=== PATIENT | female | born 1935 | race Asian ===

== ENCOUNTER 2017-01-28 00:12 | Inpatient (IN) | payer MEDICARE, OTHER ==
[~2017-01-28] VITALS: Ht 162.6 cm; Wt 75.0 kg
[2017-01-28] VITALS (12 sets, daily range): BP systolic 122–184; BP diastolic 63–84; PULSE 57–71; RESP 18–20; Ht 162.6 cm; Wt 75.0 kg
[~2017-01-28 00:12] MED LIST: ASPI81TA3 PO; ATOR40TA68 PO; CARV6.2579 PO; CLOP75TA27 PO; LEVO100T87 PO; VALS80TA2 PO
--- NOTE | 2017-01-28 00:31 | ERA ---
ER Documentation Chief Complaint Date/Time DATE: 01/28/17 TIME: 00:31 Chief Complaint Right-sided numbness and acute on chronic weakness HPI The patient is a 81-year-old female, resenting to the ER because of acute onset of right-sided numbness and acute on chronic right-sided weakness about 2 hours prior to arrival. She had history of stroke about 2 years ago with minimal right-sided weakness. She also had right facial droop about 2 hours prior to arrival. He denies headache, slurred speech, neck pain, chest pain, dyspnea, abdominal pain, vomiting, dysuria, diarrhea. He does not smoke nor drink Past medical history: CAD, hypertension, history of stroke, hypothyroidism Past surgical history: Stent PCI ROS All systems reviewed and are negative except as per history of present illness. Medications Home Meds Reported Medications Clopidogrel Bisulfate (Clopidogrel) 75 Mg Tablet, 75 MG PO DAILY, #30 TAB 08/01/16 Atorvastatin* (Atorvastatin*) 40 Mg Tablet, 40 MG PO QHS, #30 TAB 08/01/16 Valsartan* (Diovan*) 80 Mg Tablet, 80 MG PO DAILY, TAB 08/01/16 Levothyroxine Sodium* (Levothyroxine Sodium*) 100 Mcg Tablet, 100 MCG PO BEFORE BREAKFAST, #30 TAB 08/01/16 Aspirin* (Aspirin* Chew) 81 Mg Tab.chew, 81 MG PO DAILY, TAB.CHEW 08/01/16 Carvedilol* (Carvedilol*) 6.25 Mg Tablet, 6.25 MG PO BID, #60 TAB 08/01/16 Allergies Allergies: Coded Allergies: No Known Allergy (Unverified , 01/28/17) PMhx/Soc Hx Neurological Disorder: Yes (CVA ) Hx Respiratory Disorders: No Hx Cardiac Disorders: Yes Hx Psychiatric Problems: No Hx Miscellaneous Medical Probl: No Hx Alcohol Use: No Hx Substance Use: No Hx Tobacco Use: No Physical Exam Vitals Vital Signs Date Time Temp Pulse Resp B/P Pulse Ox O2 Delivery O2 Flow Rate FiO2 01/28/17 03:30 73 18 125/56 100 Room Air 01/28/17 03:00 64 14 128/69 98 Room Air 01/28/17 02:00 71 23 132/67 96 Room Air 01/28/17 01:00 72 24 183/89 96 Room Air 01/28/17 00:35 98.1 80 18 164/83 100 Physical Exam Const: No acute distress. Head: Atraumatic. Eyes: Normal Conjunctiva. ENT: Normal External Ears, Nose and Mouth. Neck: Full range of motion. No meningismus. Resp: Clear to auscultation bilaterally. Cardio: Regular rate and rhythm. Abd: Soft, non distended, normal bowel sounds, non tender. Skin: No petechiae or rashes. Back: No midline or flank tenderness. Ext: No cyanosis, or edema. Neur: Awake and alert. Right facial droop, right upper and right lower extremity 4+ Psych: Normal Mood and Affect. Result Diagram: 01/28/17 0045 01/28/17 0045 Results 24 hrs Laboratory Tests Test 01/28/17 00:25 01/28/17 00:45 Bedside Glucose 143mg/dL White Blood Count 6.610^3/ul Red Blood Count 4.2710^6/ul Hemoglobin 11.7g/dl Hematocrit 36.2% Mean Corpuscular Volume 84.8fl Mean Corpuscular Hemoglobin 27.4pg Mean Corpuscular Hemoglobin Concent 32.3g/dl Red Cell Distribution Width 14.4% Platelet Count 87621^3/UL Mean Platelet Volume 10.7fl Neutrophils % 62.9% Lymphocytes % 21.3% Monocytes % 9.1% Eosinophils % 5.6% Basophils % 0.6% Nucleated Red Blood Cells % 0.0/100WBC Neutrophils # 4.110^3/ul Lymphocytes # 1.410^3/ul Monocytes # 0.610^3/ul Eosinophils # 0.410^3/ul Basophils # 0.010^3/ul Nucleated Red Blood Cells # 0.010^3/ul Prothrombin Time 13.0Sec Prothrombin Time Ratio 1.0 INR International Normalized Ratio 0.98 Activated Partial Thromboplast Time 23.6Sec Urine Color LT. YELLOW Urine Clarity CLEAR Urine pH 7.0 Urine Specific [place] <=1.005 Urine Ketones NEGATIVE Urine Nitrite NEGATIVE Urine Bilirubin NEGATIVE Urine Urobilinogen 0.2 E.U./dL Urine Leukocyte Esterase NEGATIVE Urine Microscopic RBC 0-2/HPF Urine Microscopic WBC 0-2/HPF Urine Squamous Epithelial Cells RARE Urine Hemoglobin TRACE Urine Glucose NEGATIVE% Urine Total Protein NEGATIVE Sodium Level 137mmol/L Potassium Level 4.2mmol/L Chloride Level 101mmol/L Carbon Dioxide Level 28mmol/L Anion Gap 12 Blood Urea Nitrogen 20mg/dl Creatinine 1.26mg/dl Glucose Level 109mg/dl Calcium Level 9.0mg/dl Troponin I < 0.012ng/ml Urine Opiates Screen NEGATIVE Urine Barbiturates NEGATIVE Urine Amphetamines Screen NEGATIVE Urine Benzodiazepines Screen NEGATIVE Urine Cocaine Screen NEGATIVE Urine Cannabinoids NEGATIVE Current Medications Medications (Trade) Dose Ordered Sig/[place] Route PRN Reason Start Time Stop Time Status Last Admin Dose Admin Aspirin (Aspirin) 325 mg ONCE ONCE PO 01/28/17 02:00 01/28/17 02:01 DC Procedures/MDM [place] [id number] Radiology Main Line: [phone] DIAGNOSTIC IMAGING REPORT Patient: SYLWIA MCNEIL : 1935 Age: 81 Sex: F MR #: [id number] DOS: 01/28/17 0031 Ordering MD: TALYA FERGUSON MD Location: E/R Room/Bed: PROCEDURE: XR Chest. CLINICAL INDICATION: Possible stroke. TECHNIQUE: Single frontal view of the chest.. COMPARISON: 08/01/2016. FINDINGS: Cardiomegaly and atherosclerotic calcifications in the thoracic aorta. Likely changes of centrolobular emphysema. The lungs otherwise clear.. No signs of pleural fluid or pneumothorax are seen. The osseous structures and soft tissues are unremarkable. IMPRESSION: No evidence for active cardiopulmonary disease. RPTAT: UU Physician Brayan Date Time Electronically viewed and signed by Physician Brayan on 01/28/2017 01:07 RS/ CC: TALYA FERGUSON MD [place] [id number] Radiology Main Line: [phone] DIAGNOSTIC IMAGING REPORT Patient: SYLWIA MCNEIL : 1935 Age: 81 Sex: F MR #: [id number] DOS: 01/28/17 0031 Ordering MD: TALYA FERGUSON MD Location: E/R Room/Bed: PROCEDURE: CT head, without contrast. CLINICAL INDICATION: Possible Stroke TECHNIQUE: Noncontrast CT examination of the head, with axial, sagittal and coronal reformatted images. Automated dose exposure control was employed. CTDI: 43.58 and DLP: 720.23. COMPARISON: None. FINDINGS: Chronic changes of atrophy and small vessel disease white matter. Note acute hemorrhage. Subarachnoid spaces are substantially preserved and symmetric. Ventricles are unremarkable. No mass effect. Hartmann-white matter distinction is preserved without evident decreased attenuation to suggest acute or recent infarct. Sinuses and osseous structures are unremarkable. IMPRESSION: Chronic changes of atrophy and small vessel disease white matter. RPTAT: UU Physician Brayan Date Time Electronically viewed and signed by Physician Brayan on 01/28/2017 00:38 RS/ CC: TALYA FERGUSON MD EKG: Read by emergency physician Rate/Rhythm: Normal Sinus Rhythm 74 beats/min QRS, ST, T-waves: No ST elevation, no T inversion Impression: Normal EKG MEDICAL MAKING DECISION: The patient is a 81-year-old female, presenting with subacute stroke, she was evaluated by stroke neurologist Dr Diaz, and did not recommend TPA, only recommended aspirin The differential diagnoses considered include but are not limited to subarachnoid hemorrhage, occult trauma, CVA, meningitis, encephalitis, hypertension, tension, migraine, cluster, narcotic withdrawal, cervical spine disease. Consultation: I discussed the patient with the stroke neurologist Dr. Diaz at 12:50 AM and again at 1:10 AM Departure Diagnosis: Primary Impression: Stroke Additional Impression: Anemia Condition: Good Comments I discussed the findings with the patient. I discussed the patient with her physician Dr. Gutierrez who was made aware of the lab, the treatment, the patient condition. The patient is admitted to telemetry at 2:55 AM TALYA FERGUSON MD Jan 28, 2017 00:31
--- NOTE | 2017-01-28 00:39 | RADRPT ---
PROCEDURE: CT head, without contrast. CLINICAL INDICATION: Possible Stroke TECHNIQUE: Noncontrast CT examination of the head, with axial, sagittal and coronal reformatted im ages. Automated dose exposure control was employed. CTDI: 43.58 and DLP: 720.23. COMPARISON: None. FINDINGS: Chronic changes of atrophy and small vessel disease white matter. Note acute hemorrhage. Subarachnoid spaces are substantially preserved and symmetric. Ventricles are unremarkable. No mass effect. Hartmann-white matter distinction is preserved without evident decreased attenuation t o suggest acute or recent infarct. Sinuses and osseous structures are unremarkable. IMPRESSION: Chronic changes of atrophy and small vessel disease white matter. RPTAT: UU Physician Brayan Date Time Electronically viewed and signed by Physician Brayan on 01/28/2017 00:38 /
[2017-01-28 00:49] LABS: ADD SCAN DIFF NO
[2017-01-28 00:52] LABS: BASOPHILS % 0.6 % (0.0-2.0); EOSINOPHILS # 0.4 10^3/ul (0.0-0.5); EOSINOPHILS % 5.6 % (0.0-7.0); HEMATOCRIT 36.2 % (37.0-47.0); HEMOGLOBIN 11.7 g/dl (12.0-16.0); LYMPHOCYTES # 1.4 10^3/ul (0.8-2.9); LYMPHOCYTES % 21.3 % (15.0-51.0); MEAN CORPUSCULAR HEMOGLOBIN 27.4 pg (29.0-33.0); MEAN CORPUSCULAR HGB CONC 32.3 g/dl (32.0-37.0); MEAN CORPUSCULAR VOLUME 84.8 fl (82.0-101.0); MEAN PLATELET VOLUME 10.7 fl (7.4-10.4); MONOCYTE # 0.6 10^3/ul (0.3-0.9); MONOCYTES % 9.1 % (0.0-11.0); NEUTROPHIL # 4.1 10^3/ul (1.6-7.5); NEUTROPHILS % 62.9 % (39.0-77.0); PLATELET COUNT 190 10^3/UL (140-415); RED BLOOD COUNT 4.27 10^6/ul (4.20-5.40); RED CELL DISTRIBUTION WIDTH 14.4 % (11.5-14.5); WHITE BLOOD COUNT 6.6 10^3/ul (4.8-10.8)
[2017-01-28 00:59] LABS: ADD UMIC YES; URINE BILIRUBIN (Dip) NEGATIVE (NEGATIVE); URINE BLOOD (Dip) TRACE (NEGATIVE); URINE COLOR LT. YELLOW (YELLOW); URINE GLUCOSE (Dip) NEGATIVE (NEGATIVE); URINE KETONES (Dip) NEGATIVE (NEGATIVE); URINE LEUKOCYTE ESTERASE (Dip) NEGATIVE (NEGATIVE); URINE NITRITE (Dip) NEGATIVE (NEGATIVE); URINE TOTAL PROTEIN (Dip) NEGATIVE (NEGATIVE); URINE UROBILINOGEN (Dip) 0.2 E.U./dL (0.1-1.0)
[2017-01-28 01:05] LABS: INR 0.98
[2017-01-28 01:06] LABS: PARTIAL THROMBOPLASTIN TIME 23.6 Sec (25.0-35.0)
[2017-01-28 01:07] LABS: SQUAMOUS EPITHELIAL CELL,UR RARE; URINE RBCS 0-2 /HPF (0)
--- NOTE | 2017-01-28 01:07 | RADRPT ---
PROCEDURE: XR Chest. CLINICAL INDICATION: Possible stroke. TECHNIQUE: Single frontal view of the chest.. COMPARISON: 08/01/2016. FINDINGS: Cardiomegaly and atherosclerotic calcifications in the thoracic aorta. Likely changes of centrolobu lar emphysema. The lungs otherwise clear.. No signs of pleural fluid or pneumothorax are seen. The osseous structures and soft tissues are unremarkable. IMPRESSION: No evidence for active cardiopulmonary disease. RPTAT: UU Physician Brayan Date Time Electronically viewed and signed by Trent Patrick Physician on 01/28/2017 01:07 RS/
[2017-01-28 01:09] LABS: ANION GAP 12 (8-16); BLOOD UREA NITROGEN 20 mg/dl (7-20); CARBON DIOXIDE 28 mmol/L (21-31); CHLORIDE 101 mmol/L (97-110); CREATININE 1.26 mg/dl (0.44-1.00); GLUCOSE 109 mg/dl (70-220); POTASSIUM 4.2 mmol/L (3.5-5.1); SODIUM 137 mmol/L (135-144)
[2017-01-28 01:16] LABS: BARBITURATES NEGATIVE (NEGATIVE); BENZODIAZEPINES NEGATIVE (NEGATIVE); CANNABINOIDS NEGATIVE (NEGATIVE); COCAINE NEGATIVE (NEGATIVE)
[2017-01-28 01:17] LABS: OPIATES NEGATIVE (NEGATIVE)
[2017-01-28 01:30] LABS: TROPONIN-I < 0.012 ng/ml (0.00-0.12)
[2017-01-28] MEDS ORDERED: ASPIRIN 325 MG TAB PO ONE (02:00)
[2017-01-28] MEDS ORDERED: DOCUSATE SODIUM 100 MG CAP PO PRN (06:00)
[2017-01-28] MEDS ORDERED: NACL 0.9% 3 ML SYG IV SCH (06:00)
[2017-01-28] MEDS ORDERED: HYDROCODONE/APAP (5/325) TAB PO PRN (06:00)
[2017-01-28] MEDS ORDERED: NITROGLYCERIN (SL) 0.4 MG TAB SL PRN (06:00)
[2017-01-28] MEDS: HEPARIN 5,000 UNIT/0.5 ML VIAL SC SCH ×3 (06:36→22:40)
[2017-01-28] MEDS: LEVOTHYROXINE 100 MCG TAB PO SCH (06:42)
--- NOTE | 2017-01-28 07:17 | HP ---
Date/Time of Note Date/Time of Note DATE: 01/28/17 TIME: 07:11 Assessment/Plan VTE Prophylaxis VTE Prophylaxis Intervention: heparin Lines/Catheters IV [facility] Urinary Cath still in place: No Assessment/Plan Problems: (1) History of CVA in adulthood Status: Chronic Comment: This was roughly 18 months ago. Please note the patient has been on dual antiplatelet therapy for coronary artery disease status post PCI with stenting in July 2016. That will be continued. (2) Accelerated hypertension Status: Acute Comment: Will adjust her H2 receptor jessica therapy to get better control (3) Essential hypertension Status: Chronic Comment: Noted adjust medicines for control. (4) Hyperlipidemia Status: Chronic Comment: Continue statin therapy Qualifiers: Hyperlipidemia type: pure hypercholesterolemia Qualified Code: E78.00 - Pure hypercholesterolemia (5) Hypothyroid Status: Chronic Comment: Continue replacement therapy Qualifiers: Hypothyroidism type: acquired Qualified Code: E03.9 - Acquired hypothyroidism (6) Brain TIA Status: Acute Comment: All of neurology see the patient in consultation. Continue with dual antiplatelet therapy cholesterol management and blood pressure management. Qualifiers: Transient cerebral ischemia type: other Qualified Code: G45.8 - Other specified transient cerebral ischemias HPI/ROS Admit Date/Time Admit Date/Time Jan 28, 2017 at 02:56 Hx of Present Illness Charming 81-year-old [facility] woman with her grandson translating. She reports a prior history of a CVA roughly 18 months ago. This had presented with right- sided primarily sensory deficits with some degree of weakness. She had a good recovery. In the interim she has had cardiac evaluation with stenting in July 2016. Yesterday she was in her usual state of health and they noted that her home blood pressure monitoring that her blood pressure kesha inexplicably. She began to develop the sensory neurologic symptoms in the right upper and lower extremities with some tingling weakness or correction with tingling and numbness but not specific weakness. She was transported by paramedics to the emergency room where [facility] neurology consult was performed. Please note that that documentation is not presently in the medical record. It was opted not to treat her with thrombolytic therapy given the totality of the situation. At this time she reports she still has some degree of sensory loss in both the right upper and lower extremity. There is been no change in her vision no swallowing symptoms no alterations in her speech patterns. Her cardiac review of systems is negative. ROS Constitutional: no complaints (No fevers chills or sweats) Eyes: no complaints ENT: no complaints Respiratory: no complaints Cardiovascular: no complaints (Specifically denies cardiac symptoms) Gastrointestinal: no complaints Genitourinary: no complaints Musculoskeletal: no complaints Neurologic: other (Tingling and alteration sensation subjectively in the right upper and right lower extremities with possible weakness of the right lower extremity) Endocrine: no complaints Lymphatic: no complaints PMH/Family/Social Past Medical History Medical History: coronary artery disease, high cholesterol, hypertension, hypothyroid Past Surgical History Past Surgical Hx: noncontributory Family History Significant Family History: heart disease, diabetes, hypertension Social History Alcohol Use: none Smoking Status: Never smoker Drug Use: none Exam/Review of Systems Vital Signs Vitals Vital Signs Date Time Temp Pulse Resp B/P Pulse Ox O2 Delivery O2 Flow Rate FiO2 01/28/17 04:41 66 01/28/17 04:30 98.6 20 168/72 96 Room Air Intake and Output 01/27/17 01/27/17 01/28/17 15:00 23:00 07:00 Intake Total 100 ml Balance 100 ml Exam Exam Asleep and snoring without obvious sleep apnea. Easily awakened Constitutional: alert, oriented Psych: no complaints Head: atraumatic, normocephalic Eyes: EOMI, nl conjunctiva, nl lids, nl sclera ENMT: mucosa pink and moist, nl external ears & nose, nl lips & teeth, nl nasal mucosa & septum Neck: non-tender, supple Respiratory: clear to auscultation, normal air movement Cardiovascular: nl pulses, other (PMI is discrete and nondisplaced), regular rate and rhythm Gastrointestinal: nl liver, spleen, non-tender, soft Musculoskeletal: nl extremities to inspection Extremities: normal pulses Neurological: [employer] II-XII intact, nl mental status, nl speech, nl strength ( Appears that her strength is 5 out of 5 upper and lower right and left. There is no appreciable loss of sensory function) Labs Result Diagram: 01/28/17 0045 01/28/17 0045 Medications Medications Current Medications Aspirin (Aspirin) 81 mg DAILY PO ; Start 01/28/17 at 09:00 Clopidogrel Bisulfate (plaVIX) 75 mg DAILY PO ; Start 01/28/17 at 09:00 Nitroglycerin (Nitroglycerin (Sl Tab) 0.4 Mg) 1 tab Q5M PRN SL CHEST PAIN; Start 01/28/17 at 06:00 Acetaminophen/ Hydrocodone Bitart ([place] (5/325)) 1 tab Q6H PRN PO PAIN LEVEL 4 -6; Start 01/28/17 at 06:00 Docusate Sodium (Colace) 100 mg Q12H PRN PO CONSTIPATION; Start 01/28/17 at 06: 00 Famotidine (Pepcid) 20 mg DAILY PO ; Start 01/28/17 at 09:00 Heparin Sodium (Porcine) (Heparin (5000 Units/0.5 ml)) 5,000 unit Q8 SC Last administered on 01/28/17t 06:36; Admin Dose 5,000 UNIT; Start 01/28/17 at 06:00 Atorvastatin Calcium (Lipitor) 40 mg QHS PO ; Start 01/28/17 at 21:00 Carvedilol (Coreg) 6.25 mg BID PO ; Start 01/28/17 at 09:00 Valsartan (Diovan) 80 mg DAILY PO ; Start 01/28/17 at 09:00 GAYLE DAMON MD Jan 28, 2017 07:17
[2017-01-28] MEDS: FAMOTIDINE 20 MG TAB PO SCH (08:50)
[2017-01-28] MEDS: ASPIRIN 81 MG TAB PO SCH (08:50)
[2017-01-28] MEDS: VALSARTAN 80 MG TAB PO SCH ×2 (08:50→20:43)
[2017-01-28] MEDS: CLOPIDOGREL 75 MG TAB PO SCH (08:50)
[2017-01-28] MEDS ORDERED: VALSARTAN 80 MG TAB PO SCH (09:00)
[2017-01-28] MEDS ORDERED: CLOPIDOGREL 75 MG TAB PO SCH (09:00)
[2017-01-28] MEDS ORDERED: ASPIRIN 81 MG TAB PO SCH (09:00)
--- NOTE | 2017-01-28 09:19 | CONS ---
DATE OF ADMISSION: 01/28/2017 DATE OF CONSULTATION: 01/28/2017 REASON FOR CONSULTATION: I was asked to see the patient concerning stroke. HISTORY OF PRESENT ILLNESS: The patient is an 81-year-old female with a past medical history of manjinder or stroke, coronary artery disease and hypertension. The patient was in her baseline state of healt h until 10:00 local time when she developed the onset of right-sided face, arm, and leg numbness. T he patient denies any acute visual changes, diplopia, dysarthria or weakness. She did have some tra nsient facial weakness, which appears to nearly have resolved. It has been in excess of 3 hours sinc e the patient's symptoms began. The patient last had a stroke 2 years ago, which left her with some mild right-sided weakness. The patient reports compliance with her aspirin. She has no trauma. Sh e has no bleeding within the brain. She has had no recent illness. PAST MEDICAL HISTORY: As described. SOCIAL HISTORY: The patient is not a drinker, nor is she a smoker. PHYSICAL EXAMINATION: VITAL SIGNS: The patient's blood pressure was 170/85 systolic, pulse rate was 80 and normal sinus r hythm. The patient had a full NIH Stroke Scale Score was completed. The patient scored a 1 for mild right facial asymmetry and a 1 for subjective sensory impairment. Review of the patient's noncontrast hea d CT showed no acute findings. ASSESSMENT: This is a patient who has likely had a mild small vessel infarct. The patient is outsi de the criteria for tPA administration. The patient is unlikely to have large vessel disease and would not benefit from a CTA or CTP. The patient should be given aspirin, she should be hydrated with saline. Her blood pressure should be allowed to be loosely hypertensive and treated only for a blood pressure that exceeds 220/110 mmHg. The patient should be watched closely for any neurologi c deterioration. She should have a hemoglobin A1c and a lipid profile sent. She should avoid fever and her blood glucose should be kept between 80 and 180 mg/dL. If the patient is a carotid revascul arization candidate, she should have a carotid ultrasound ordered and the patient should have local neurologic consultation. I spoke with the emergency department doctor regarding my recommendations. Dictated By: TARAN CHO CM/EDUARDO Conf#: [id number] [facility]#: [id number]
[2017-01-28] MEDS ORDERED: VALSARTAN 80 MG TAB PO ONE (12:00)
--- NOTE | 2017-01-28 13:22 | CONS ---
Date/Time of Note Date/Time of Note DATE: 01/28/17 TIME: 13:16 Assessment/Plan Assessment/Plan Chief Complaint/Hosp Course 81 yo female with hx of HTN, CAD s/p stent on dual antiplatelet prior CVA residual right sided weakness p/w right sensory and motor complaints. Exam suggestive of a mild right sided weakness. Recommendations: obtain MRI Brain without contrast MRA Head/Neck without contrast HBA1C wnl checking FLP ECHO w bubble target SBP should be less than 140, gradually achieve this goal continue dual antiplatelet DVT ppx PT/OT/Speech will follow w further recommendations Problems: Consultation Date/Type/Reason Admit Date/Time Jan 28, 2017 at 02:56 Date of Consultation: Jan 28, 2017 Type of Consultation: Neurology Reason for Consultation right sided weakness eval for CVA Referring Provider: GAYLE DAMON MD Hx of Present Illness 81 yo female hx of previous CVA 2 years ago residual right sided weakness CAD s/ p stent HTN admitted with c/o right face arm and leg numbness, family noted right facial droop. She presented to the ER after tPA window, was evaluated by tele neurology, NIHSS was 2. Head CT was unrevealing. Since admission symptoms have remained stable. She denies any visual changes, no dysarthria, she is able to ambulate to the restroom well and tolerating PO well. right sided weakness Eyes: no complaints ENT: no complaints Respiratory: no complaints Cardiovascular: no complaints (Specifically denies cardiac symptoms) Gastrointestinal: no complaints Genitourinary: no complaints Musculoskeletal: no complaints Neurologic: other (Tingling and alteration sensation subjectively in the right upper and right lower extremities with possible weakness of the right lower extremity) Lymphatic: no complaints Psychological: no complaints Past Medical History Medical History: coronary artery disease, high cholesterol, hypertension, hypothyroid Past Surgical History Past Surgical Hx: noncontributory Social History Alcohol Use: none Smoking Status: Never smoker Drug Use: none Exam/Review of Systems Vital Signs Vitals Vital Signs Date Time Temp Pulse Resp B/P Pulse Ox O2 Delivery O2 Flow Rate FiO2 01/28/17 12:19 65 01/28/17 11:37 184/76 01/28/17 11:36 97.5 20 96 01/28/17 04:30 Room Air Intake and Output 01/27/17 01/27/17 01/28/17 15:00 23:00 07:00 Intake Total 100 ml Balance 100 ml Exam Constitutional: alert, oriented, well developed Head: atraumatic, normocephalic Neurological: DTR's symmetric, nl mental status, nl speech, other (mild right NLF flattening mild right pronator drift) Results Result Diagram: 01/28/17 0045 01/28/17 0045 Results 24 hrs Laboratory Tests Test 01/28/17 00:25 01/28/17 00:45 Bedside Glucose 143 White Blood Count 6.6 Red Blood Count 4.27 Hemoglobin 11.7 L Hematocrit 36.2 L Mean Corpuscular Volume 84.8 Mean Corpuscular Hemoglobin 27.4 L Mean Corpuscular Hemoglobin Concent 32.3 Red Cell Distribution Width 14.4 Platelet Count 190 Mean Platelet Volume 10.7 #H Neutrophils % 62.9 Lymphocytes % 21.3 Monocytes % 9.1 Eosinophils % 5.6 Basophils % 0.6 Nucleated Red Blood Cells % 0.0 Neutrophils # 4.1 Lymphocytes # 1.4 Monocytes # 0.6 Eosinophils # 0.4 Basophils # 0.0 Nucleated Red Blood Cells # 0.0 Prothrombin Time 13.0 Prothrombin Time Ratio 1.0 INR International Normalized Ratio 0.98 Activated Partial Thromboplast Time 23.6 L Urine Color LT. YELLOW Urine Clarity CLEAR Urine pH 7.0 Urine Specific [place] <=1.005 L Urine Ketones NEGATIVE Urine Nitrite NEGATIVE Urine Bilirubin NEGATIVE Urine Urobilinogen 0.2 E.U./dL Urine Leukocyte Esterase NEGATIVE Urine Microscopic RBC 0-2 Urine Microscopic WBC 0-2 Urine Squamous Epithelial Cells RARE Urine Hemoglobin TRACE Urine Glucose NEGATIVE Urine Total Protein NEGATIVE Sodium Level 137 Potassium Level 4.2 Chloride Level 101 Carbon Dioxide Level 28 Anion Gap 12 Blood Urea Nitrogen 20 Creatinine 1.26 H Glucose Level 109 Hemoglobin A1c 6.0 H Calcium Level 9.0 Troponin I < 0.012 Urine Opiates Screen NEGATIVE Urine Barbiturates NEGATIVE Urine Amphetamines Screen NEGATIVE Urine Benzodiazepines Screen NEGATIVE Urine Cocaine Screen NEGATIVE Urine Cannabinoids NEGATIVE Medications Medications Current Medications Aspirin (Aspirin) 81 mg DAILY PO Last administered on 01/28/17 08:50; Admin Dose 81 MG; Start 01/28/17 at 09:00 Clopidogrel Bisulfate (plaVIX) 75 mg DAILY PO Last administered on 01/28/17 08 :50; Admin Dose 75 MG; Start 01/28/17 at 09:00 Nitroglycerin (Nitroglycerin (Sl Tab) 0.4 Mg) 1 tab Q5M PRN SL CHEST PAIN; Start 01/28/17 at 06:00 Acetaminophen/ Hydrocodone Bitart ([place] (5/325)) 1 tab Q6H PRN PO PAIN LEVEL 4 -6; Start 01/28/17 at 06:00 Docusate Sodium (Colace) 100 mg Q12H PRN PO CONSTIPATION; Start 01/28/17 at 06: 00 Famotidine (Pepcid) 20 mg DAILY PO Last administered on 01/28/17 08:50; Admin Dose 20 MG; Start 01/28/17 at 09:00 Heparin Sodium (Porcine) (Heparin (5000 Units/0.5 ml)) 5,000 unit Q8 SC Last administered on 01/28/17 06:36; Admin Dose 5,000 UNIT; Start 01/28/17 at 06:00 Atorvastatin Calcium (Lipitor) 40 mg QHS PO ; Start 01/28/17 at 21:00 Carvedilol (Coreg) 6.25 mg BID PO Last administered on 01/28/17 08:51; Admin Dose 6.25 MG; Start 01/28/17 at 09:00 Valsartan (Diovan) 80 mg BID PO Last administered on 01/28/17 08:50; Admin Dose 80 MG; Start 01/28/17 at 09:00 BEBETO CORTÉS MD Jan 28, 2017 13:22
--- NOTE | 2017-01-28 19:56 | RADRPT ---
PROCEDURE: MR Brain without contrast. CLINICAL INDICATION: Right-sided weakness, evaluate for CVA. TECHNIQUE: An MRI of the brain was performed on a GE short bore high-definition 3 [place] scanner ut ilizing the following sequences: Sagittal and axial T1 weighted, axial T2 weighted, axial FLAIR, cor onal GRE, and axial diffusion weighted with ADC mapping. COMPARISON: CT brain 01/28/2017. FINDINGS: No high signal abnormalities are seen on the diffusion-weighted images to suggest the presence of ac pamunkey ischemia or recent infarct. There is no evidence of intracranial hemorrhage, mass effect, or mi dline shift. No extra-axial fluid collections are seen. Incidental note is made of a near empty sell a. Mild diffuse volume loss is evident. Increased T2-weighted/FLAIR signal intensity is noted with in the periventricular and deep white matter, consistent with mild microvascular ischemic disease. The signal intensity appears grossly normal within the brainstem. There is a small linear chronic l acunar infarct in the left cerebellum. No hypointense signal abnormalities are seen on the GRE image s to suggest the presence of blood degradation products. Normal flow voids are visible in the proxi mal intracranial arteries and dural sinuses, indicating patency. The visualized paranasal sinuses a re grossly clear. IMPRESSION: 1. No evidence of acute intracranial pathology. 2. Mild diffuse volume loss with mild microvascular ischemic disease in the periventricular and bob p white matter. 3. There is a small chronic linear lacunar infarct in the left cerebellum. 4. Near empty sella. RPTAT: HJAH .Yeimy Gee MD, MD Date Time Electronically viewed and signed by .Yeimy Gee MD, on 01/28/2017 19:56 .H/
--- NOTE | 2017-01-28 20:00 | RADRPT ---
PROCEDURE: MRA Brain. CLINICAL INDICATION: Weakness. TECHNIQUE: An MRA of the brain was performed on a GE short bore high-definition 3 modest[place] scanner ut ilizing 3-D [id number] MR angiography technique. Source and MIP images were reviewed. COMPARISON: None FINDINGS: There is considerable motion artifact, which limits detailed evaluation of the intracranial vessels. The internal carotid arteries, middle cerebral artery, and anterior cerebral artery are patent and grossly normal in caliber. No aneurysm is detected. The intracranial vertebral arteries, basilar artery, and posterior cerebral arteries are also patent and grossly normal in caliber. IMPRESSION: Limited MRA of the brain secondary to motion artifact, though no gross acute abnormality is seen. RPTAT: HJAH .Yeimy Gee MD, MD Date Time Electronically viewed and signed by .Yeimy Gee MD, on 01/28/2017 19:59 .H/
--- NOTE | 2017-01-28 20:02 | RADRPT ---
PROCEDURE: MRA Neck without contrast. CLINICAL INDICATION: Right-sided weakness. TECHNIQUE: An MRA of the major cervical arteries was performed on a 1.5 modesto scanner utilizing ax ial 2D time of flight and localized 3-D [id number] to the carotid bifurcations. No IV contrast was given as ordered. Source and MIPPED images were reviewed. COMPARISON: No prior studies are available for comparison. FINDINGS: There is mild motion artifact, though the study is of gross diagnostic quality. The common carotid arteries are patent and normal in caliber. The carotid bulbs appear normal, and no hemodynamically significant stenosis is evident within either internal carotid artery. The vertebral arteries are p atent and grossly normal in caliber bilaterally. There is no evidence of vascular stenosis or occlu arielle. IMPRESSION: Grossly normal noncontrast MRA of the neck. Motion artifact minimally limits the study. RPTAT: HJAH .Yeimy Gee MD, MD Date Time Electronically viewed and signed by .Yeimy Gee MD, on 01/28/2017 20:01 .H/
[2017-01-28] MEDS: ATORVASTATIN 40 MG TAB PO SCH (20:43)
[2017-01-28] MEDS ORDERED: AMLODIPINE 5 MG TAB PO STA (23:05)
[2017-01-29] VITALS (14 sets, daily range): BP systolic 144–204; BP diastolic 65–97; PULSE 59–68; RESP 18–20
[2017-01-29] MEDS ORDERED: ENALAPRILAT 1.25 MG INJ IV ONE
[2017-01-29] MEDS: HEPARIN 5,000 UNIT/0.5 ML VIAL SC SCH ×3 (05:44→20:43)
[2017-01-29 07:55] LABS: ADD SCAN DIFF NO
[2017-01-29 07:59] LABS: BASOPHILS % 0.5 % (0.0-2.0); EOSINOPHILS # 0.3 10^3/ul (0.0-0.5); EOSINOPHILS % 5.6 % (0.0-7.0); HEMATOCRIT 36.3 % (37.0-47.0); HEMOGLOBIN 11.6 g/dl (12.0-16.0); LYMPHOCYTES # 1.6 10^3/ul (0.8-2.9); LYMPHOCYTES % 26.7 % (15.0-51.0); MEAN CORPUSCULAR VOLUME 84.6 fl (82.0-101.0); MONOCYTE # 0.5 10^3/ul (0.3-0.9); MONOCYTES % 8.1 % (0.0-11.0); NEUTROPHIL # 3.5 10^3/ul (1.6-7.5); NEUTROPHILS % 58.6 % (39.0-77.0); PLATELET COUNT 187 10^3/UL (140-415); RED BLOOD COUNT 4.29 10^6/ul (4.20-5.40); RED CELL DISTRIBUTION WIDTH 14.5 % (11.5-14.5); WHITE BLOOD COUNT 5.9 10^3/ul (4.8-10.8)
[2017-01-29 08:23] LABS: CHOL/HDL RATIO 2.8 RATIO
[2017-01-29 08:25] LABS: ALBUMIN 3.9 g/dl (3.3-4.9); ALBUMIN/GLOBULIN RATIO 1.69; BILIRUBIN,INDIRECT 0.3 mg/dl (0-1.1); BILIRUBIN,TOTAL 0.3 mg/dl (0.2-1.3); CALCIUM 9.2 mg/dl (8.4-10.2); CREATININE 1.23 mg/dl (0.44-1.00); POTASSIUM 4.3 mmol/L (3.5-5.1); TOTAL PROTEIN 6.2 g/dl (6.1-8.1)
[2017-01-29 08:55] LABS: THYROID STIMULATING HORMONE 2.9 MIU/L (0.465-4.680)
[2017-01-29] MEDS: ASPIRIN 81 MG TAB PO SCH (09:16)
[2017-01-29] MEDS: LEVOTHYROXINE 100 MCG TAB PO SCH (09:16)
[2017-01-29] MEDS: CLOPIDOGREL 75 MG TAB PO SCH (09:16)
[2017-01-29] MEDS: VALSARTAN 80 MG TAB PO SCH (09:16)
[2017-01-29] MEDS: FAMOTIDINE 20 MG TAB PO SCH (09:16)
--- NOTE | 2017-01-29 09:32 | PN ---
Date/Time of Note Date/Time of Note DATE: 01/29/17 TIME: 09:31 Assessment/Plan VTE Prophylaxis VTE Prophylaxis Intervention: other Lines/Catheters IV [facility] Urinary Cath still in place: No Assessment/Plan Problems: (1) Brain TIA Status: Acute Comment: She is stable. The smith issue here will be controlling her blood pressure. MRI and MRAs were fortunately not significantly revealing. Continue dual antiplatelet therapy. Qualifiers: Transient cerebral ischemia type: other Qualified Code: G45.8 - Other specified transient cerebral ischemias (2) Hypothyroid Status: Chronic Comment: Stable on replacement dosing Qualifiers: Hypothyroidism type: acquired Qualified Code: E03.9 - Acquired hypothyroidism (3) Hyperlipidemia Status: Chronic Comment: On full dose statin therapy Qualifiers: Hyperlipidemia type: pure hypercholesterolemia Qualified Code: E78.00 - Pure hypercholesterolemia (4) History of CVA in adulthood Status: Chronic Comment: Noted. (5) Accelerated hypertension Status: Acute Comment: She has had accelerated hypertension. I am going to be further adjusting her medications try and give her a smoother blood pressure control without hypotension Subjective 24 Hr Interval Summary Free Text/Dictation Patient had increased blood pressure again last night and her symptoms of the right sided cutaneous sensory type recurred. It is better now. Constitutional: no complaints Respiratory: no complaints Cardiovascular: no complaints Gastrointestinal: no complaints Genitourinary: no complaints Neurologic: other (Right sided numbness and tingling.) Exam/Review of Systems Vital Signs Vitals Vital Signs Date Time Temp Pulse Resp B/P Pulse Ox O2 Delivery O2 Flow Rate FiO2 01/29/17 08:33 59 01/29/17 07:47 98.6 20 144/74 96 01/28/17 04:30 Room Air Intake and Output 01/28/17 01/28/17 01/29/17 15:00 23:00 07:00 Intake Total 970 ml Balance 970 ml Exam Constitutional: alert, oriented Neck: non-tender, supple Respiratory: clear to auscultation, normal air movement Cardiovascular: nl pulses, regular rate and rhythm Results Result Diagram: 01/29/17 0700 01/29/17 0700 Results 24 hrs Laboratory Tests Test 01/29/17 07:00 White Blood Count 5.9 Red Blood Count 4.29 Hemoglobin 11.6 L Hematocrit 36.3 L Mean Corpuscular Volume 84.6 Mean Corpuscular Hemoglobin 27.0 L Mean Corpuscular Hemoglobin Concent 32.0 Red Cell Distribution Width 14.5 Platelet Count 187 Mean Platelet Volume 11.0 H Neutrophils % 58.6 Lymphocytes % 26.7 Monocytes % 8.1 Eosinophils % 5.6 Basophils % 0.5 Nucleated Red Blood Cells % 0.0 Neutrophils # 3.5 Lymphocytes # 1.6 Monocytes # 0.5 Eosinophils # 0.3 Basophils # 0.0 Nucleated Red Blood Cells # 0.0 Sodium Level 140 Potassium Level 4.3 Chloride Level 106 Carbon Dioxide Level 26 Anion Gap 12 Blood Urea Nitrogen 18 Creatinine 1.23 H Glucose Level 93 Calcium Level 9.2 Total Bilirubin 0.3 Direct Bilirubin 0.00 Indirect Bilirubin 0.3 Aspartate Amino Transf (AST/SGOT) 20 Alanine Aminotransferase (ALT/SGPT) 33 Alkaline Phosphatase 61 Total Protein 6.2 Albumin 3.9 Globulin 2.30 Albumin/Globulin Ratio 1.69 Triglycerides Level 94 Cholesterol Level 106 LDL Cholesterol, Calculated 50 HDL Cholesterol 37 Cholesterol/HDL Ratio 2.8 Thyroid Stimulating Hormone (TSH) 2.900 Medications Medications Current Medications Aspirin (Aspirin) 81 mg DAILY PO Last administered on 01/29/17 09:16; Admin Dose 81 MG; Start 01/28/17 at 09:00 Clopidogrel Bisulfate (plaVIX) 75 mg DAILY PO Last administered on 01/29/17 09 :16; Admin Dose 75 MG; Start 01/28/17 at 09:00 Nitroglycerin (Nitroglycerin (Sl Tab) 0.4 Mg) 1 tab Q5M PRN SL CHEST PAIN; Start 01/28/17 at 06:00 Acetaminophen/ Hydrocodone Bitart ([place] (5/325)) 1 tab Q6H PRN PO PAIN LEVEL 4 -6; Start 01/28/17 at 06:00 Docusate Sodium (Colace) 100 mg Q12H PRN PO CONSTIPATION; Start 01/28/17 at 06: 00 Famotidine (Pepcid) 20 mg DAILY PO Last administered on 01/29/17 09:16; Admin Dose 20 MG; Start 01/28/17 at 09:00 Heparin Sodium (Porcine) (Heparin (5000 Units/0.5 ml)) 5,000 unit Q8 SC Last administered on 01/29/17 05:44; Admin Dose 5,000 UNIT; Start 01/28/17 at 06:00 Atorvastatin Calcium (Lipitor) 40 mg QHS PO Last administered on 01/28/17 20: 43; Admin Dose 40 MG; Start 01/28/17 at 21:00 Carvedilol (Coreg) 6.25 mg BID PO Last administered on 01/29/17 09:16; Admin Dose 6.25 MG; Start 01/28/17 at 09:00 Valsartan (Diovan) 80 mg BID PO Last administered on 01/29/17 09:16; Admin Dose 80 MG; Start 01/28/17 at 09:00 GAYLE DAMON MD Jan 29, 2017 09:32
[2017-01-29] MEDS: AMLODIPINE 5 MG TAB PO SCH (12:37)
--- NOTE | 2017-01-29 15:44 | CONS ---
Date/Time of Note Date/Time of Note DATE: 01/29/17 TIME: 15:42 Consult Date/Type/Reason Admit Date/Time Jan 28, 2017 at 02:56 Initial Consult Date 01/28/17 Type of Consultation: Neurology Reason for Consultation CVA work up Ordering Provider: GAYLE DAMON MD Subjective MRI and MRA Negative c/o mild right sided weakness symptoms are otherwise stable Objective Vital Signs Date Time Temp Pulse Resp B/P Pulse Ox O2 Delivery O2 Flow Rate FiO2 01/29/17 15:40 98.4 58 20 176/77 95 01/28/17 04:30 Room Air Intake and Output 01/28/17 01/28/17 01/29/17 14:59 22:59 06:59 Intake Total 970 ml Balance 970 ml Exam Constitutional: alert, oriented, well developed Head: atraumatic, normocephalic Neurological: DTR's symmetric, nl mental status, nl speech, other (mild right NLF flattening mild right pronator drift) Results/Medications Result Diagram: 01/29/17 0700 01/29/17 0700 Results 24 hrs Laboratory Tests Test 01/29/17 07:00 White Blood Count 5.9 Red Blood Count 4.29 Hemoglobin 11.6 L Hematocrit 36.3 L Mean Corpuscular Volume 84.6 Mean Corpuscular Hemoglobin 27.0 L Mean Corpuscular Hemoglobin Concent 32.0 Red Cell Distribution Width 14.5 Platelet Count 187 Mean Platelet Volume 11.0 H Neutrophils % 58.6 Lymphocytes % 26.7 Monocytes % 8.1 Eosinophils % 5.6 Basophils % 0.5 Nucleated Red Blood Cells % 0.0 Neutrophils # 3.5 Lymphocytes # 1.6 Monocytes # 0.5 Eosinophils # 0.3 Basophils # 0.0 Nucleated Red Blood Cells # 0.0 Sodium Level 140 Potassium Level 4.3 Chloride Level 106 Carbon Dioxide Level 26 Anion Gap 12 Blood Urea Nitrogen 18 Creatinine 1.23 H Glucose Level 93 Calcium Level 9.2 Total Bilirubin 0.3 Direct Bilirubin 0.00 Indirect Bilirubin 0.3 Aspartate Amino Transf (AST/SGOT) 20 Alanine Aminotransferase (ALT/SGPT) 33 Alkaline Phosphatase 61 Total Protein 6.2 Albumin 3.9 Globulin 2.30 Albumin/Globulin Ratio 1.69 Triglycerides Level 94 Cholesterol Level 106 LDL Cholesterol, Calculated 50 HDL Cholesterol 37 Cholesterol/HDL Ratio 2.8 Thyroid Stimulating Hormone (TSH) 2.900 Medications Current Medications Aspirin (Aspirin) 81 mg DAILY PO Last administered on 01/29/17 09:16; Admin Dose 81 MG; Start 01/28/17 at 09:00 Clopidogrel Bisulfate (plaVIX) 75 mg DAILY PO Last administered on 01/29/17 09 :16; Admin Dose 75 MG; Start 01/28/17 at 09:00 Nitroglycerin (Nitroglycerin (Sl Tab) 0.4 Mg) 1 tab Q5M PRN SL CHEST PAIN; Start 01/28/17 at 06:00 Acetaminophen/ Hydrocodone Bitart ([place] (5/325)) 1 tab Q6H PRN PO PAIN LEVEL 4 -6; Start 01/28/17 at 06:00 Docusate Sodium (Colace) 100 mg Q12H PRN PO CONSTIPATION; Start 01/28/17 at 06: 00 Famotidine (Pepcid) 20 mg DAILY PO Last administered on 01/29/17 09:16; Admin Dose 20 MG; Start 01/28/17 at 09:00 Heparin Sodium (Porcine) (Heparin (5000 Units/0.5 ml)) 5,000 unit Q8 SC Last administered on 01/29/17 15:10; Admin Dose 5,000 UNIT; Start 01/28/17 at 06:00 Atorvastatin Calcium (Lipitor) 40 mg QHS PO Last administered on 01/28/17 20: 43; Admin Dose 40 MG; Start 01/28/17 at 21:00 Carvedilol (Coreg) 6.25 mg BID PO Last administered on 01/29/17 09:16; Admin Dose 6.25 MG; Start 01/28/17 at 09:00 Amlodipine Besylate (Norvasc) 5 mg DAILY PO Last administered on 01/29/17 12: 37; Admin Dose 5 MG; Start 01/29/17 at 10:00 Valsartan (Diovan) 80 mg ONCE ONCE PO ; Start 01/29/17 at 16:00; Stop 01/29/17 at 16:01 Valsartan (Diovan) 160 mg BID PO ; Start 01/29/17 at 21:00 Assessment/Plan Chief Complaint/Hosp Course 81 yo female with hx of HTN, CAD s/p stent on dual antiplatelet prior CVA residual right sided weakness p/w right sensory and motor complaints. Exam suggestive of a mild right sided weakness likely from prior CVA. MRI Brain and MRA Head/Neck without contrast is normal. Recommendations: continue to achieve target blood pressure <140 medications being optimized continue dual antiplatelet therapy continue current management she may follow with neurology as outpatient Problems: BEBETO CORTÉS MD Jan 29, 2017 15:44
[2017-01-29] MEDS ORDERED: VALSARTAN 80 MG TAB PO ONE (16:00)
[2017-01-29] MEDS: ATORVASTATIN 40 MG TAB PO SCH (20:38)
[2017-01-29] MEDS: VALSARTAN 160 MG TAB PO SCH (20:39)
[2017-01-30] VITALS (8 sets, daily range): BP systolic 111–186; BP diastolic 53–79; PULSE 52–81; RESP 20
[2017-01-30] MEDS: LEVOTHYROXINE 100 MCG TAB PO SCH ×2 (05:53→09:10)
[2017-01-30] MEDS: HEPARIN 5,000 UNIT/0.5 ML VIAL SC SCH ×2 (05:59→15:42)
[2017-01-30] MEDS: VALSARTAN 160 MG TAB PO SCH (09:10)
[2017-01-30] MEDS: ASPIRIN 81 MG TAB PO SCH (09:10)
[2017-01-30] MEDS: CLOPIDOGREL 75 MG TAB PO SCH (09:10)
[2017-01-30] MEDS: FAMOTIDINE 20 MG TAB PO SCH (09:10)
[2017-01-30] MEDS: AMLODIPINE 5 MG TAB PO SCH (09:11)
--- NOTE | 2017-01-30 11:26 | RADRPT ---
PROCEDURE: CT brain without contrast CLINICAL INDICATION: Headache, pain, bilateral parietal area TECHNIQUE: CT of the brain without contrast performed on a multidetector CT scanner, with multiplan ar reformats. One or more of the following dose reduction techniques were used: Automated exposure control, adjustment in mA and / or kV according to patient size, use of iterative reconstructive hal hnique. CTDIvol = 44 mGy; DLP = 630 mGy-cm. COMPARISON: CT, MRI brain 01/28/2017 FINDINGS: No acute intracranial hemorrhage is identified. No extra-axial fluid collection is seen. There is no mass effect. No midline shift is identified. Ventricles and sulci are mildly enlarged compatible with volume loss. There is a tiny chronic infarct in the left cerebellar hemisphere. There are mild areas of hypodens ity in the periventricular - deep white matter which are nonspecific but suggestive of chronic small vessel ischemic changes. Hartmann-white differentiation is preserved. Partly empty sella is again not ed. Atherosclerotic calcifications of the intracranial internal carotid arteries are noted. Osseous structures are unremarkable. Mastoid air cells and imaged paranasal sinuses grossly clear. IMPRESSION: 1. No evidence of acute intracranial pathology. 2. Tiny chronic left cerebellar infarct. 3. Mild volume loss, with mild chronic small vessel ischemic changes. RPTAT: VV .Alonso Vo MD, MD Date Time Electronically viewed and signed by .Alonso Vo MD, on 01/30/2017 11:25 .O/
[2017-01-30] MEDS ORDERED: MAGNESIUM HYDROXIDE 30ML CUP PO ONE (14:00)
--- NOTE | 2017-01-30 14:00 | DS ---
Date/Time of Note Date/Time of Note DATE: 01/30/17 TIME: 13:57 Discharge Summary Admission/Discharge Info Admit Date/Time Jan 28, 2017 at 02:56 Discharge Date/Time 01/30/2017 Final Diagnosis Accelerated hypertension; status post CVA; constipation; hypothyroid; hyperlipidemia; Patient Condition: Good Consults Neurology Procedures CT scan of brain 2; echocardiogram; MRI scan brain; MRA neck and cerebral arteries Hx of Present Illness Charming 81-year-old [facility] woman with her grandson translating. She reports a prior history of a CVA roughly 18 months ago. This had presented with right- sided primarily sensory deficits with some degree of weakness. She had a good recovery. In the interim she has had cardiac evaluation with stenting in July 2016. Yesterday she was in her usual state of health and they noted that her home blood pressure monitoring that her blood pressure kesha inexplicably. She began to develop the sensory neurologic symptoms in the right upper and lower extremities with some tingling weakness or correction with tingling and numbness but not specific weakness. She was transported by paramedics to the emergency room where [facility]y consult was performed. Please note that that documentation is not presently in the medical record. It was opted not to treat her with thrombolytic therapy given the totality of the situation. At this time she reports she still has some degree of sensory loss in both the right upper and lower extremity. There is been no change in her vision no swallowing symptoms no alterations in her speech patterns. Her cardiac review of systems is negative. Hospital Course 81 yo female with hx of HTN, CAD s/p stent on dual antiplatelet prior CVA residual right sided weakness p/w right sensory and motor complaints. Exam suggestive of a mild right sided weakness likely from prior CVA. MRI Brain and MRA Head/Neck without contrast is normal. Recommendations: continue to achieve target blood pressure <140 medications being optimized continue dual antiplatelet therapy continue current management she may follow with neurology as outpatient 81-year-old woman who is admitted with uncontrolled hypertension accelerated hypertension with some neurologic sequelae. Multiple scans of the brain fortunately did not demonstrate new issue. She is improved nicely with control of the blood pressure. She is now at a point where she is stable for discharge. Her rehabilitation potential is good and she has no known chemical diseases she is not hazard to herself or others and she is competent for medical decision-making Home Meds Reported Medications Clopidogrel Bisulfate (Clopidogrel) 75 Mg Tablet, 75 MG PO DAILY, #30 TAB 08/01/16 Atorvastatin* (Atorvastatin*) 40 Mg Tablet, 40 MG PO QHS, #30 TAB 08/01/16 Valsartan* (Diovan*) 80 Mg Tablet, 80 MG PO DAILY, TAB 08/01/16 Levothyroxine Sodium* (Levothyroxine Sodium*) 100 Mcg Tablet, 100 MCG PO BEFORE BREAKFAST, #30 TAB 08/01/16 Aspirin* (Aspirin* Chew) 81 Mg Tab.chew, 81 MG PO DAILY, TAB.CHEW 08/01/16 Carvedilol* (Carvedilol*) 6.25 Mg Tablet, 6.25 MG PO BID, #60 TAB 08/01/16 Follow-up Plan Primary care office 1 week Primary Care Provider Devonte Sewell MD Time spent on discharge: > 30 minutes GAYLE DAMON MD Jan 30, 2017 14:00
--- NOTE | 2017-01-30 14:01 | PDOCDIS ---
Discharge Instructions DIAGNOSIS Discharge Diagnosis: Accelerated hypertension; hyperlipidemia; hypothyroidism; status post CVA CONDITION Patient Condition: Good HOME CARE INSTRUCTIONS: Diet Instructions: Regular ACTIVITY: Activity Restrictions: Slowly Increase Activity Do not operate Power Tool FOLLOW UP/APPOINTMENTS Appointments Dr. Sewell in 1 week GAYLE DAMON MD Jan 30, 2017 14:01
[2017-01-30] MEDS ORDERED: VALS160T20 PO (14:02)
[2017-01-30] MEDS ORDERED: AMLO-145 PO (14:02)
== END 2017-01-30 16:27 | disposition home or self-care (01) | DRG 65 ==
LOC: E/R 00:12 → MS4 02:56
PROVIDERS: ADMIT Internal Medicine; ATTEND Internal Medicine
DX: I63.9 Cerebral infarction, unspecified (principal); I69.351 Hemiplegia and hemiparesis following cerebral infarction affecting right dominant side; D64.9 Anemia, unspecified; I10 Essential (primary) hypertension; E03.9 Hypothyroidism, unspecified; E78.5 Hyperlipidemia, unspecified; R29.810 Facial weakness; R20.2 Paresthesia of skin; R29.701 NIHSS score 1; Z95.5 Presence of coronary angioplasty implant and graft
CPT/HCPCS: 36415; 70450; 70544; 70549; 70551; 71010; 80048; 80053; 80061; 80307; 81001; 82962; 83036; 84443; 84484; 85025; 85610; 85730; 92610; 93005; 97110; 97116; 97162; 97530; J1644